=== PATIENT | female | born 1980 | race Caucasian/White ===

== ENCOUNTER 2019-05-06 01:27 | Emergency (ER) | payer MEDICARE, MEDICAID ==
[~2019-05-06] VITALS: Ht 165.1 cm; Wt 81.8 kg
[2019-05-06] MEDS ORDERED: ketorolac trometh. 30mg/ml inj. IM ONE (03:45)
--- NOTE | 2019-05-06 04:25 | NUR ---
attempted lab draw patient screamed when I touched her arm, neddle in and patietn flung her arm away, discussed with dr kumari: unable to draw labs
[2019-05-06] MEDS ORDERED: heparin sodium, porcine/PF 100unit/ml 5ML syringe IV ONE (04:50)
--- NOTE | 2019-05-06 04:50 | NUR ---
PATIENT REPORTS THAT HER MIDLINE ABDOMINAL SCAR IS FROM A "TOTAL COLECTOMY"
--- NOTE | 2019-05-06 04:59 | NUR ---
PATIENT REFUSED TO HAVE HER PORT A CATH HEPARINIZED AND LEFT THE ER
--- NOTE | 2019-05-06 04:59 | NUR ---
OVERHEARD PT REFUSE HEPARIN FLUSH FOR PORT-A-CATH FROM [facility]. JAMEEL LEE NOTIFIED OF REFUSAL PT WENT TO [facility] FOR DC AND TAXI WAIT.
[2019-05-06 05:15] VITALS: BP 125/70
[2019-05-07] MEDS ORDERED: NITR100C6 PO (05:20)
== END 2019-05-06 05:00 | disposition home or self-care (01) ==
LOC: ER 01:28
DX: R10.9 Unspecified abdominal pain (principal); R19.7 Diarrhea, unspecified; F17.200 Nicotine dependence, unspecified, uncomplicated; Z90.49 Acquired absence of other specified parts of digestive tract; Z88.0 Allergy status to penicillin
CPT/HCPCS: 96372; 99283; J1642; J1885

== ENCOUNTER 2019-05-07 03:57 | Emergency (ER) | payer MEDICARE, MEDICAID ==
[~2019-05-07] VITALS: Ht 165.1 cm; Wt 81.8 kg
[2019-05-07 04:57] LABS: URINE HCG NEGATIVE (NEG)
[2019-05-07 05:02] LABS: CLARITY,URINE SLIGHTLY CLOUDY (Clear); COLOR,URINE YELLOW (Yellow); GLUCOSE, URINE NEGATIVE (Neg); KETONES,URINE NEGATIVE (Neg); LEUKOCYTE ESTERASE ,URINE SMALL (Neg); NITRITES, URINE NEGATIVE (Neg); OCCULT BLOOD,URINE TRACE-INTACT (Neg); PH,URINE 5.5 (4.8-8.0); PROTEIN,URINE NEGATIVE (Neg); UROBILINOGEN,URINE 0.2 E.U/dL (0.2-1.0)
[2019-05-07 05:03] LABS: BASOPHILS # (AUTO) 0.1 X10'3 (0-0.2); BASOPHILS % (AUTO) 0.7 % (0-1); EOSINOPHILS # (AUTO) 0.4 X10'3 (0-0.9); EOSINOPHILS % (AUTO) 3.4 % (0-6); HEMATOCRIT 30.8 % (35.0-45.0); HEMOGLOBIN 10.6 g/dl (12.0-16.0); LYMPHOCYTES # (AUTO) 2.8 X10'3 (1.1-4.8); LYMPHOCYTES % (AUTO) 21.8 % (21-51); MEAN CORPUSCULAR HEMOGLOBIN 29.8 PG (27.0-31.0); MEAN CORPUSCULAR HGB CONC 34.3 g/dL (33.0-36.5); MEAN CORPUSCULAR VOLUME 86.8 FL (78-98); MEAN PLATELET VOLUME 7.6 FL (7.4-10.4); MONOCYTES # (AUTO) 0.7 X10'3 (0-0.9); MONOCYTES % (AUTO) 5.3 % (2-12); NEUTROPHILS # (AUTO) 8.7 X10'3 (1.8-7.7); NEUTROPHILS % (AUTO) 68.8 % (42-75); PLATELET COUNT 355 X10'3 (140-440); RED BLOOD COUNT 3.55 X10'6 (4.20-5.60); RED CELL DISTRIBUTION WIDTH 15.2 % (11.5-14.5); WHITE BLOOD COUNT 12.6 X10'3 (4.5-11.0)
[2019-05-07 05:09] LABS: UA COLLECTION TYPE CLN CATCH MIDSTREAM
[2019-05-07 05:10] LABS: BACTERIA,URINE FEW /HPF (Neg); RBC,URINE 0-2 /HPF (0-2); WBC,URINE 30-50 /HPF (0-4)
[2019-05-07 05:11] LABS: SQUAMOUS EPITHELIAL CELL,UR MODERATE /LPF (FEW); TRICHOMONAS,URINE FEW /HPF (NEGATIVE)
[2019-05-07 05:17] LABS: URINE AMPHETAMINE SCREEN NEGATIVE (Neg); URINE BARBITUATE SCREEN NEGATIVE (Neg); URINE BENZODIAZEPINES SCREEN NEGATIVE (Neg); URINE CANNABINOID SCREEN NEGATIVE (Neg); URINE COCAINE SCREEN NEGATIVE (Neg); URINE METHADONE SCREEN NEGATIVE (Neg); URINE OPIATE SCREEN NEGATIVE (Neg); URINE PHENCYCLIDINE SCREEN NEGATIVE (Neg)
[2019-05-07] MEDS ORDERED: NITR100C6 PO (05:20)
[2019-05-07 05:32] LABS: ALANINE AMINOTRANSFERASE 19 U/L (12-78); ALBUMIN 3.3 G/DL (3.4-5.0); ALKALINE PHOSPHATASE 73 IU/L (46-116); ANION GAP 9 (8-16); ASPARTATE AMINO TRANSFERASE 14 U/L (10-37); BILIRUBIN,TOTAL 0.2 MG/DL (0.1-1.0); BLOOD UREA NITROGEN 11 MG/DL (7-18); BUN/CREATININE RATIO 12.8 (6.6-38.0); CALCIUM 8.2 MG/DL (8.5-10.1); CHLORIDE 106 MMOL/L (99-107); CREATININE 0.86 MG/DL (0.40-0.90); GLUCOSE 97 MG/DL (70-104); LIPASE 145 U/L (73-393); POTASSIUM 3.3 MMOL/L (3.5-5.1); SODIUM 140 MMOL/L (135-145); TOTAL CARBON DIOXIDE 24.7 MMOL/L (24-32); TOTAL PROTEIN 6.7 G/DL (6.4-8.2); eGFR 74 ML/MIN
[2019-05-07 06:01] VITALS: BP 106/56
== END 2019-05-07 05:50 | disposition home or self-care (01) ==
LOC: ER 03:57
DX: N39.0 Urinary tract infection, site not specified (principal); R10.32 Left lower quadrant pain; F17.200 Nicotine dependence, unspecified, uncomplicated; Z90.49 Acquired absence of other specified parts of digestive tract; Z88.0 Allergy status to penicillin
CPT/HCPCS: 36415; 80053; 80305; 81001; 81025; 83690; 85025; 87088; 99283

== ENCOUNTER 2019-05-07 20:07 | Emergency (ER) | payer MEDICAID, MEDICARE ==
[~2019-05-07] VITALS: Ht 165.1 cm; Wt 81.8 kg
[~2019-05-07 20:07] MED LIST: NITR100C6 PO
[2019-05-07] MEDS ORDERED: ketorolac trometh inj. 60 MG/2 ML VIAL IM ONE (21:55)
[2019-05-07] MEDS ORDERED: FOSFOMYCIN TROMETHAMINE 3 GM PACKET PO ONE (21:55)
--- NOTE | 2019-05-08 01:05 | NUR ---
The patient signed her discharge paperwork after receiving her discharge information. She then stated that she has nowhere to go. Taxi services were offered to [place] [facility] [place], however she refused a ride stating that she would be arrested if she went to the [facility] and that she has nowhere else to go.
--- NOTE | 2019-05-08 02:12 | NUR ---
At 0203 the patient was escorted out of the ED and to the half-way by [place] [employer] after refusing to leave. She stated that she was not going to change her clothes and that she was not going to leave. At 0140, security was called to escort the patient out of the ED. At 0101, the patient signed her discharge paperwork after receiving her discharge information. She refused to take the monurol medication that was prescribed in the ED. She refused to give any labwork and refused physical assessment by the MD.
[2019-05-08 02:17] VITALS: BP 119/56
== END 2019-05-08 02:03 | disposition left against medical advice (07) ==
LOC: ER 20:07
DX: N83.202 Unspecified ovarian cyst, left side (principal); F17.200 Nicotine dependence, unspecified, uncomplicated; Z90.49 Acquired absence of other specified parts of digestive tract; Z59.0 Homelessness; Z88.0 Allergy status to penicillin
CPT/HCPCS: 74176; 99284; J1885

== ENCOUNTER 2019-05-10 22:51 | Emergency (ER) | payer MEDICARE ==
[~2019-05-10] VITALS: Ht 177.8 cm; Wt 72.7 kg
[2019-05-11 00:10] LABS: COLOR,URINE YELLOW (Yellow); GLUCOSE, URINE NEGATIVE (Neg); KETONES,URINE NEGATIVE (Neg); LEUKOCYTE ESTERASE ,URINE TRACE (Neg); NITRITES, URINE NEGATIVE (Neg); OCCULT BLOOD,URINE NEGATIVE (Neg); PH,URINE 6.5 (4.8-8.0); PROTEIN,URINE NEGATIVE (Neg); UROBILINOGEN,URINE 0.2 E.U/dL (0.2-1.0)
[2019-05-11 00:10] LABS: BASOPHILS # (AUTO) 0.1 X10'3 (0-0.2); BASOPHILS % (AUTO) 0.8 % (0-1); EOSINOPHILS # (AUTO) 0.3 X10'3 (0-0.9); EOSINOPHILS % (AUTO) 2.4 % (0-6); HEMATOCRIT 37.9 % (35.0-45.0); HEMOGLOBIN 12.9 g/dl (12.0-16.0); LYMPHOCYTES % (AUTO) 22.4 % (21-51); MEAN CORPUSCULAR HEMOGLOBIN 29.8 PG (27.0-31.0); MEAN CORPUSCULAR HGB CONC 34.1 g/dL (33.0-36.5); MEAN CORPUSCULAR VOLUME 87.3 FL (78-98); MEAN PLATELET VOLUME 7.4 FL (7.4-10.4); MONOCYTES # (AUTO) 0.7 X10'3 (0-0.9); MONOCYTES % (AUTO) 5.2 % (2-12); NEUTROPHILS # (AUTO) 9.4 X10'3 (1.8-7.7); NEUTROPHILS % (AUTO) 69.2 % (42-75); PLATELET COUNT 379 X10'3 (140-440); RED BLOOD COUNT 4.34 X10'6 (4.20-5.60); RED CELL DISTRIBUTION WIDTH 15.1 % (11.5-14.5); WHITE BLOOD COUNT 13.6 X10'3 (4.5-11.0)
[2019-05-11 00:12] LABS: CLARITY,URINE SLIGHTLY CLOUDY (Clear); UA COLLECTION TYPE CLN CATCH MIDSTREAM
[2019-05-11 00:15] LABS: BACTERIA,URINE NONE SEEN /HPF (Neg); RBC,URINE 0-2 /HPF (0-2); SQUAMOUS EPITHELIAL CELL,UR FEW /LPF (FEW); WBC,URINE 0-4 /HPF (0-4)
[2019-05-11 01:07] LABS: ALANINE AMINOTRANSFERASE 18 U/L (12-78); ALBUMIN 3.7 G/DL (3.4-5.0); ALBUMIN/GLOBULIN RATIO 0.9 (1.1-1.5); ALKALINE PHOSPHATASE 81 IU/L (46-116); ANION GAP 10 (8-16); ASPARTATE AMINO TRANSFERASE 15 U/L (10-37); BILIRUBIN,TOTAL 0.1 MG/DL (0.1-1.0); BLOOD UREA NITROGEN 11 MG/DL (7-18); BUN/CREATININE RATIO 10.9 (6.6-38.0); CALCIUM 9.1 MG/DL (8.5-10.1); CHLORIDE 105 MMOL/L (99-107); CREATININE 1.01 MG/DL (0.40-0.90); GLUCOSE 80 MG/DL (70-104); POTASSIUM 3.6 MMOL/L (3.5-5.1); SODIUM 142 MMOL/L (135-145); TOTAL CARBON DIOXIDE 27.3 MMOL/L (24-32); TOTAL PROTEIN 7.6 G/DL (6.4-8.2); eGFR 61 ML/MIN
[2019-05-11 02:52] VITALS: BP 139/78
== END 2019-05-11 02:56 | disposition home or self-care (01) ==
LOC: ER 22:52
DX: R10.31 Right lower quadrant pain (principal); R10.32 Left lower quadrant pain; Z90.49 Acquired absence of other specified parts of digestive tract; Z59.0 Homelessness; Z88.0 Allergy status to penicillin
CPT/HCPCS: 36415; 80053; 81001; 81003; 83605; 84145; 85025; 87088; 99283

== ENCOUNTER 2019-05-12 02:59 | Emergency (ER) | payer MEDICARE ==
[~2019-05-12] VITALS: Ht 165.1 cm; Wt 81.8 kg
[2019-05-12 03:02] VITALS: BP 145/85
[2019-05-13] MEDS ORDERED: PRED20TA PO (23:25)
== END 2019-05-12 03:41 | disposition home or self-care (01) ==
LOC: ER 03:00
DX: N83.202 Unspecified ovarian cyst, left side (principal); Z77.128 Contact with and (suspected) exposure to other hazards in the physical environment; Z59.0 Homelessness; Z90.49 Acquired absence of other specified parts of digestive tract; Z88.0 Allergy status to penicillin; Z79.899 Other long term (current) drug therapy
CPT/HCPCS: 99281

== ENCOUNTER 2019-05-13 21:55 | Emergency (ER) | payer MEDICARE ==
[~2019-05-13] VITALS: Ht 165.1 cm; Wt 81.8 kg
[2019-05-13 21:59] VITALS: BP 122/74
--- NOTE | 2019-05-13 22:30 | NUR ---
PER [employer], JAMEEL, PT HAS BEEN SEEN DAILY BY OUR ER OVER THE PAST FEW DAYS AND HAS HAD FULL WORK UPS AND WAS DIAGNOSED WITH OVARIAN CYSTS. PT REPORTS THAT THIS CONDITION IS D/T HER ULCERATIVE COLITIS. PT MADE LEVEL 5 AND IS IN NO APPARENT DISTRESS AND WITH STABLE VS.
--- NOTE | 2019-05-13 23:13 | NUR ---
PT UP TO BR TO VOID. WALKING WITH STEADY GAIT.
[2019-05-13] MEDS ORDERED: PRED20TA PO (23:25)
== END 2019-05-13 23:39 | disposition home or self-care (01) ==
LOC: ER 21:55
DX: R10.84 Generalized abdominal pain (principal); Z90.49 Acquired absence of other specified parts of digestive tract; Z98.890 Other specified postprocedural states; Z59.0 Homelessness; Z79.899 Other long term (current) drug therapy
CPT/HCPCS: 99283

== ENCOUNTER 2019-05-15 19:55 | Emergency (ER) | payer MEDICARE ==
[~2019-05-15] VITALS: Ht 165.1 cm; Wt 81.8 kg
[~2019-05-15 19:55] MED LIST changes: +PRED20TA PO
[2019-05-15 20:03] VITALS: BP 131/86
[2019-05-15 20:23] LABS: CLARITY,URINE CLOUDY (Clear); COLOR,URINE YELLOW (Yellow); GLUCOSE, URINE NEGATIVE (Neg); KETONES,URINE NEGATIVE (Neg); LEUKOCYTE ESTERASE ,URINE MODERATE (Neg); NITRITES, URINE NEGATIVE (Neg); OCCULT BLOOD,URINE NEGATIVE (Neg); PROTEIN,URINE NEGATIVE (Neg); UROBILINOGEN,URINE 0.2 E.U/dL (0.2-1.0)
[2019-05-15 20:24] LABS: URINE HCG NEGATIVE (NEG)
[2019-05-15 20:26] LABS: UA COLLECTION TYPE CLN CATCH MIDSTREAM
[2019-05-15 20:37] LABS: BACTERIA,URINE 2+ /HPF (Neg); RBC,URINE NONE SEEN /HPF (0-2); SQUAMOUS EPITHELIAL CELL,UR MANY /LPF (FEW); TRICHOMONAS,URINE MOD /HPF (NEGATIVE)
[2019-05-15 20:38] LABS: MUCUS STRANDS FEW /LPF (Neg)
--- NOTE | 2019-05-15 22:00 | NUR ---
PT STATED SHE HURTS ALL OVER , PAIN SCALE IS 10/10 BUT SHE DOESNT KNOW IF IT IS REALLY THAT BAD. STATES THE BED IS NOT COMFORTABLE AND DOES NOT FIT HER BODY TYPE AND ASKED FOR A NEW BED .
--- NOTE | 2019-05-15 22:15 | NUR ---
PATIENT REFUSED VITAL SIGNS. PATIENT REFUSED TYLENOL OR IBUPROFEN: " I WANT FLUID IN MY PORT NOW" OFFERED WATER AND JUICE: PATIENT DRANK BOTH DISCUSSED THAT ORAL INTAKE OF FLUIDS IS MUCH BETTER FOR THE BODY TO INTAKE FLUID NATURALLY THAN THRU AN IV
--- NOTE | 2019-05-15 22:20 | NUR ---
DISCUSSED WITH DR OLSEN CT SCAN RESULTS FROM 05/09/2019. DOES NOT WANT ANY FURTHER INTERVENTION OTHER THAN LABS.
[2019-05-15 23:41] LABS: BASOPHILS # (AUTO) 0.1 X10'3 (0-0.2); BASOPHILS % (AUTO) 0.6 % (0-1); EOSINOPHILS # (AUTO) 0.3 X10'3 (0-0.9); EOSINOPHILS % (AUTO) 3.2 % (0-6); HEMATOCRIT 33.6 % (35.0-45.0); HEMOGLOBIN 11.6 g/dl (12.0-16.0); LYMPHOCYTES # (AUTO) 2.3 X10'3 (1.1-4.8); MEAN CORPUSCULAR HEMOGLOBIN 29.8 PG (27.0-31.0); MEAN CORPUSCULAR HGB CONC 34.7 g/dL (33.0-36.5); MEAN CORPUSCULAR VOLUME 85.9 FL (78-98); MEAN PLATELET VOLUME 7.1 FL (7.4-10.4); MONOCYTES # (AUTO) 0.5 X10'3 (0-0.9); MONOCYTES % (AUTO) 4.4 % (2-12); NEUTROPHILS # (AUTO) 7.4 X10'3 (1.8-7.7); NEUTROPHILS % (AUTO) 69.8 % (42-75); PLATELET COUNT 355 X10'3 (140-440); RED BLOOD COUNT 3.91 X10'6 (4.20-5.60); WHITE BLOOD COUNT 10.6 X10'3 (4.5-11.0)
[2019-05-15 23:49] LABS: ALANINE AMINOTRANSFERASE 20 U/L (12-78); ALBUMIN 3.4 G/DL (3.4-5.0); ALBUMIN/GLOBULIN RATIO 0.9 (1.1-1.5); ALKALINE PHOSPHATASE 72 IU/L (46-116); ANION GAP 9 (8-16); ASPARTATE AMINO TRANSFERASE 17 U/L (10-37); BILIRUBIN,TOTAL 0.3 MG/DL (0.1-1.0); BLOOD UREA NITROGEN 12 MG/DL (7-18); BUN/CREATININE RATIO 12.2 (6.6-38.0); CALCIUM 8.8 MG/DL (8.5-10.1); CHLORIDE 105 MMOL/L (99-107); CREATININE 0.98 MG/DL (0.40-0.90); GLUCOSE 86 MG/DL (70-104); LIPASE 124 U/L (73-393); POTASSIUM 3.9 MMOL/L (3.5-5.1); SODIUM 139 MMOL/L (135-145); TOTAL CARBON DIOXIDE 25.1 MMOL/L (24-32); TOTAL PROTEIN 7.4 G/DL (6.4-8.2); eGFR 64 ML/MIN
[2019-05-19] MEDS ORDERED: NO HOME MEDS (11:02)
== END 2019-05-16 00:08 | disposition home or self-care (01) ==
LOC: ER 19:55
DX: R10.84 Generalized abdominal pain (principal); R19.7 Diarrhea, unspecified; R11.10 Vomiting, unspecified; Z90.49 Acquired absence of other specified parts of digestive tract; Z59.0 Homelessness; Z88.0 Allergy status to penicillin; Z79.899 Other long term (current) drug therapy
CPT/HCPCS: 36415; 80053; 81001; 81025; 83690; 85025; 99283

== ENCOUNTER 2019-05-16 21:37 | Emergency (ER) | payer MEDICARE ==
[~2019-05-16] VITALS: Ht 165.1 cm; Wt 81.0 kg
[2019-05-16 21:42] VITALS: BP 140/82
[2019-05-19] MEDS ORDERED: NO HOME MEDS (11:02)
== END 2019-05-16 23:02 | disposition left against medical advice (07) ==
LOC: ER 21:37
DX: K51.90 Ulcerative colitis, unspecified, without complications (principal); Z53.21 Procedure and treatment not carried out due to patient leaving prior to being seen by health care provider

== ENCOUNTER 2019-05-17 21:58 | Emergency (ER) | payer MEDICARE ==
[~2019-05-17] VITALS: Ht 152.4 cm; Wt 81.8 kg
[2019-05-17 22:03] VITALS: BP 152/90
--- NOTE | 2019-05-18 01:17 | NUR ---
assisting RN with pt care, pt is 38 yo female c/o "ulcerative colitis", joint pain, +fever/chills x1day, nonproductive cough x 2days, +n/v/d, gave pt blanket, pt said she is homeless "I was kicked out the [place]...I don't know why", waiting to be evaluated by provider
[2019-05-18] MEDS ORDERED: DICY10CA88 PO (01:46)
--- NOTE | 2019-05-18 01:52 | NUR ---
patient in bed eyes closed rr even un labored blankets on no observable s/s of acute stress at this time will continue to monitor
[2019-05-19] MEDS ORDERED: NO HOME MEDS (11:02)
== END 2019-05-18 02:22 | disposition home or self-care (01) ==
LOC: ER 21:59
DX: R10.84 Generalized abdominal pain (principal); M54.2 Cervicalgia; Z90.49 Acquired absence of other specified parts of digestive tract; Z59.0 Homelessness; Z88.0 Allergy status to penicillin; Z79.899 Other long term (current) drug therapy
CPT/HCPCS: 99283

== ENCOUNTER 2019-05-18 21:24 | Emergency (ER) | payer MEDICARE ==
[~2019-05-18] VITALS: Ht 165.1 cm; Wt 81.8 kg
[~2019-05-18 21:24] MED LIST changes: +DICY10CA88 PO
[2019-05-18 21:27] VITALS: BP 140/76
[2019-05-19] MEDS ORDERED: NO HOME MEDS (11:02)
[2019-05-22] MEDS ORDERED: LEVO750T21 PO (09:44)
[2019-05-22] MEDS ORDERED: ALBU8HFA PO (09:44)
== END 2019-05-18 22:02 | disposition home or self-care (01) ==
LOC: ER 21:24
DX: Z76.5 Malingerer [conscious simulation] (principal); K51.90 Ulcerative colitis, unspecified, without complications; Z90.49 Acquired absence of other specified parts of digestive tract; Z59.0 Homelessness; Z88.0 Allergy status to penicillin; Z79.899 Other long term (current) drug therapy
CPT/HCPCS: 99283